=== PATIENT | female | born 1990 | race African-American/Black ===

== ENCOUNTER 2018-04-14 16:06 | Emergency (ER) | payer MEDICAID ==
[~2018-04-14] VITALS: Ht 172.7 cm; Wt 79.0 kg
[2018-04-14 18:32] LABS: BASOPHILS % 0.9 % (0.0-2.0); EOSINOPHILS % 0.3 % (0.0-5.0); HEMATOCRIT. 30.8 % (36.0-48.0); HEMOGLOBIN. 9.6 g/dL (12.0-16.0); LYMPHOCYTES % 23.1 % (20.0-50.0); MEAN CORPUSCULAR HEMOGLOBIN 22.8 pg (28.0-32.0); MEAN CORPUSCULAR VOLUME 73.1 fL (81.0-99.0); MEAN PLATELET VOLUME 9.5 fl (7.4-10.4); MONOCYTES % 6.2 % (2.0-8.0); NEUTROPHILS % 69.5 % (40.0-76.0); PLATELET 239 x1000/uL (130-400); RED BLOOD CELL COUNT 4.22 mill/uL (4.2-5.4); RED CELL DISTRIBUTION WIDTH 23.8 % (11.6-14.6)
[2018-04-14 18:37] LABS: CHLORIDE 99 mEq/L (98-107)
[2018-04-14 18:54] LABS: PLATELET ESTIMATE NORMAL
[2018-04-14 21:34] LABS: CLARITY URINE CLEAR (CLEAR); COLOR URINE YELLOW (YELLOW); KETONES URINE 3+ (NEGATIVE); LEUKOCYTE ESTERASE URINE NEGATIVE (NEGATIVE); NITRITE URINE NEGATIVE (NEGATIVE); OCCULT BLOOD URINE 3+ (NEGATIVE); PH URINE 5.5 (4.5-8.0); PROTEIN URINE 2+ (NEGATIVE); SPECIFIC GRAVITY URINE 1.025 (1.005-1.030)
[2018-04-14 21:59] VITALS: BP 122/71
== END 2018-04-15 | disposition home or self-care (01) ==
LOC: ER 23:49
DX: R35.8 Other polyuria (principal); R63.1 Polydipsia; E11.9 Type 2 diabetes mellitus without complications; I10 Essential (primary) hypertension
CPT/HCPCS: 36415; 81025; 82962; 99283

== ENCOUNTER 2018-12-14 12:26 | Emergency (ER) | payer MEDICAID ==
[~2018-12-14] VITALS: Ht 170.2 cm; Wt 79.0 kg
[2018-12-14 12:44] VITALS: BP 122/59
== END 2018-12-14 15:40 | disposition left against medical advice (07) ==
LOC: ER 12:26
DX: R73.9 Hyperglycemia, unspecified (principal); Z53.21 Procedure and treatment not carried out due to patient leaving prior to being seen by health care provider
CPT/HCPCS: 82962